=== PATIENT | male | born 1960 | race Asian ===

== ENCOUNTER 2018-09-30 18:41 | Inpatient (IN) | payer OTHER ==
[~2018-09-30] VITALS: Ht 167.6 cm; Wt 79.1 kg
[~2018-09-30 18:41] MED LIST: ATRUD HHN; BACO TOP; CLONAZEPAM1 MG PO; COL100 PO; GLU500 PO; HALCION0.25 MG PO; HIBICLENS118 ML TOP; LEVAQUIN750 MG PO; MOTRIN800 MG PO; OXYCONTIN20 MG PO; PRI20 PO; XOP1.25 HHN; ZES10 PO; ZOMIG5 MG PO
[2018-09-30 18:49] VITALS: Ht 167.6 cm; Wt 79.1 kg
[2018-09-30 19:10] LABS: PLATELET COUNT 285 x10^3mcL (130-400)
[2018-09-30 19:11] LABS: BASOPHIL % 0 % (0-2); RED CELL DISTRIBUTION WIDTH 14.7 % (11.5-14.5)
[2018-09-30 19:28] LABS: ALBUMIN 3.5 g/dL (3.4-5.0); ALKALINE PHOSPHATASE 136 U/L (46-116); ALT/SGPT 54 U/L (16-63); AST/SGOT 17 U/L (15-37); BILIRUBIN TOTAL 0.31 mg/dL (0.20-1.00); CALCIUM 8.7 mg/dL (8.5-10.1); CARBON DIOXIDE 26.7 mmol/L (21-32); CHLORIDE SERUM 92 mmol/L (98-107); CREATININE SERUM 1.3 mg/dL (0.7-1.3); GFR1 > 60 mL/min; POTASSIUM SERUM 4.4 mmol/L (3.5-5.1); SODIUM SERUM 125 mmol/L (136-145); TOTAL PROTEIN, SERUM 7.3 g/dL (6.4-8.2)
[2018-09-30 19:31] LABS: GLUCOSE SERUM 493 mg/dL (74-106)
[2018-09-30 20:05] LABS: microscopic required? NO
[2018-09-30 20:11] LABS: UA SPECIFIC GRAVITY <=1.005 (1.005-1.035); urine erythrocyte NEGATIVE (NEGATIVE)
[2018-09-30 20:48] LABS: CHOLESTEROL/HDL RATIO 3.9; MAGNESIUM 2.2 mg/dL (1.8-2.4); PHOSPHOROUS 3.1 mg/dL (2.5-4.9)
[2018-09-30] MEDS ORDERED: IBUPROFEN400 MG PO (20:59)
[2018-09-30] MEDS ORDERED: OXYC PO (20:59)
[2018-09-30] MEDS ORDERED: TOPROL XL25 MG PO (21:00)
[2018-09-30] MEDS ORDERED: LOSARTAN POTASS50 M1 PO (21:00)
[2018-09-30 21:01] LABS: T3 TOTAL 0.88 ng/mL
[2018-09-30 21:17] LABS: FREE T4 0.92 ng/dL (0.76-1.46); FREE THYROXINE INDEX 2.8 ug/dL (1.4-4.5); T4(THYROXINE) 7.5 ug/dL (4.7-13.3)
[2018-09-30 21:59] VITALS: BP 142/104
[2018-09-30] MEDS ORDERED: METOPROLOL TART50 MG PO (22:16)
[2018-09-30 23:49] VITALS: BP 142/104
[2018-10-01 05:11] LABS: PLATELET COUNT 268 x10^3mcL (130-400)
[2018-10-01 05:12] LABS: BASOPHIL % 0 % (0-2); RED CELL DISTRIBUTION WIDTH 15.1 % (11.5-14.5)
[2018-10-01 05:22] LABS: CARBON DIOXIDE 27.5 mmol/L (21-32); CHLORIDE SERUM 97 mmol/L (98-107); CREATININE SERUM 1.1 mg/dL (0.7-1.3); GFR1 > 60 mL/min; GLUCOSE SERUM 393 mg/dL (74-106); POTASSIUM SERUM 4.6 mmol/L (3.5-5.1); SODIUM SERUM 133 mmol/L (136-145)
[2018-10-01 05:42] VITALS: BP 141/97
[2018-10-01 08:42] VITALS: BP 142/97
[2018-10-01 12:16] VITALS: BP 117/90
[2018-10-01 17:06] VITALS: BP 116/77
[2018-10-01 21:17] VITALS: BP 134/97
[2018-10-02 04:17] VITALS: BP 125/67
[2018-10-02 06:57] LABS: CALCIUM 8.8 mg/dL (8.5-10.1); CARBON DIOXIDE 29.8 mmol/L (21-32); CHLORIDE SERUM 95 mmol/L (98-107); CREATININE SERUM 0.8 mg/dL (0.7-1.3); GFR1 > 60 mL/min; GLUCOSE SERUM 249 mg/dL (74-106); SODIUM SERUM 131 mmol/L (136-145)
[2018-10-02 07:03] LABS: BASOPHIL % 0.3 % (0-2); PLATELET COUNT 283 x10^3mcL (130-400); RED CELL DISTRIBUTION WIDTH 14.5 % (11.5-14.5)
[2018-10-02 08:04] VITALS: BP 127/77
[2018-10-02 12:19] VITALS: BP 121/85
[2018-10-02] MEDS ORDERED: LEVOFLOXACIN500 M1 PO (14:26)
[2018-10-02] MEDS ORDERED: LOSARTAN POTAS100 M1 PO (14:26)
[2018-10-02] MEDS ORDERED: LAC PO (14:26)
[2018-10-02] MEDS ORDERED: PREDNISONE20 MG PO (14:27)
[2018-10-02 14:32] VITALS: BP 121/85
== END 2018-10-02 15:20 | disposition home or self-care (01) | DRG 189 ==
LOC: ED 18:41 → DU 20:35
PROVIDERS: Emergency Medicine; ADMIT Family Medicine
DX: J96.00 Acute respiratory failure, unspecified whether with hypoxia or hypercapnia (principal); J44.1 Chronic obstructive pulmonary disease with (acute) exacerbation; E87.1 Hypo-osmolality and hyponatremia; E11.65 Type 2 diabetes mellitus with hyperglycemia; I10 Essential (primary) hypertension; E78.5 Hyperlipidemia, unspecified; D72.829 Elevated white blood cell count, unspecified; R74.0 Nonspecific elevation of levels of transaminase and lactic acid dehydrogenase [LDH]; K76.0 Fatty (change of) liver, not elsewhere classified; Z96.642 Presence of left artificial hip joint; Z68.29 Body mass index [BMI] 29.0-29.9, adult; Z87.891 Personal history of nicotine dependence; Z79.84 Long term (current) use of oral hypoglycemic drugs
CPT/HCPCS: 82962; 83880; 84439; 87804; J1815; J1956; J2920; J2930; J3475; J7030; J7613; J7620; J7644; Q0092

== ENCOUNTER 2019-06-23 19:44 | Inpatient (IN) | payer OTHER ==
[~2019-06-23] VITALS: Ht 167.6 cm; Wt 82.2 kg
[~2019-06-23 19:44] MED LIST changes: +IBUPROFEN400 MG PO; +LAC PO; +LEVOFLOXACIN500 M1 PO; +LOSARTAN POTAS100 M1 PO; +LOSARTAN POTASS50 M1 PO; +METOPROLOL TART50 MG PO; +OXYC PO; +PREDNISONE20 MG PO; +TOPROL XL25 MG PO
[2019-06-23 19:57] VITALS: Ht 167.6 cm; Wt 82.2 kg
--- NOTE | 2019-06-23 20:05 | NUR ---
PT BROUGHT TO ED FROM HOME BY [facility] WITH C/O SOB. PT STATES THAT HE HAS BEEN OUT OF HIS INHALER FOR X2 WKS BECAUSE HIS INSURANCE WILL NOT REFILL IT BEFORE HE SEES A DR. PT STATES THAT HE HAS BEEN FEELING SOB SINCE THEN BUT IT HAS BEEN WORSE TODAY. PER MEDICS PT WAS SPEAKING IN 2-3 WORD SENTANCE WITH DIMINISHED LUNG SOUNDS ON SCENE O2 SAT 97% ON RA. PT WAS GIVEN ALBUTEROL BREATHING TREATMENT AND PT NOW SPEAKING IN FULL SENTANCES AT THIS TIME, LUNG SOUNDS DIMINISHED BILATERALLY. PT REMAINS ON O2 SAT 97% AT THIS TIME. NO RETRACTIONS NOTED BUT MILD WORK OF BREATHING NOTED. . PT ON FULL CM DR KEENE AT BEDSIDE AT THIS TIME. PT AOX4, RESP EVEN AND UNLABORED, NO ACUTE DISTRESS NOTED.
--- NOTE | 2019-06-23 22:00 | NUR ---
AMBULATED PT TO OBTAIN O2 SAT, SAT DROPPED TO 86% ON RA WHILE AMBULATING. PT RETURNED TO BED WITHOUT INCIDENT, PLACED ON 3L O2 VIA NASAL CANNULA AND O2 SAT IMPROVED TO 93% AT THIS TIME. DR KEENE AWARE.
[2019-06-23 22:54] LABS: BASOPHIL % 0.3 % (0-2); PLATELET COUNT 303 x10^3mcL (130-400); RED CELL DISTRIBUTION WIDTH 14.5 % (11.5-14.5)
[2019-06-23 23:00] LABS: CALCIUM 8.8 mg/dL (8.5-10.1); CARBON DIOXIDE 27.1 mmol/L (21-32); CHLORIDE SERUM 99 mmol/L (98-107); CREATININE SERUM 0.9 mg/dL (0.7-1.3); GFR1 > 60 mL/min; GLUCOSE SERUM 225 mg/dL (74-106); POTASSIUM SERUM 3.9 mmol/L (3.5-5.1); SODIUM SERUM 135 mmol/L (136-145)
[2019-06-23 23:04] LABS: ALBUMIN 3.5 g/dL (3.4-5.0); ALKALINE PHOSPHATASE 114 U/L (46-116); ALT/SGPT 59 U/L (16-63); AST/SGOT 24 U/L (15-37); BILIRUBIN TOTAL 0.3 mg/dL (0.20-1.00); TOTAL PROTEIN, SERUM 7.4 g/dL (6.4-8.2)
[2019-06-23] MEDS ORDERED: OMEPRAZOLE40 M1 PO (23:17)
[2019-06-23] MEDS ORDERED: METOPROLOL TART50 MG PO (23:17)
[2019-06-23] MEDS ORDERED: NOR5 PO (23:17)
[2019-06-23] MEDS ORDERED: RULOX PO (23:18)
[2019-06-23] MEDS ORDERED: DALIRESP500 MC1 PO (23:18)
[2019-06-23] MEDS ORDERED: SPIRIVA18 MC1 INH (23:18)
[2019-06-23] MEDS ORDERED: LACTULOSE10 GM/152 PO (23:19)
[2019-06-23] MEDS ORDERED: LIDODERM51 TOP (23:19)
--- NOTE | 2019-06-23 23:23 | NUR ---
PT RESTING IN A POSITION OF COMFORT, AOX4, RESP EVEN AND UNLABORED, NO ACUTE DISTRESS NOTED.
--- NOTE | 2019-06-23 23:33 | NUR ---
PT REPORT CALLED TO NATALIE BROWN TO ASSUME PT CARE.
[2019-06-23 23:50] LABS: CHOLESTEROL/HDL RATIO 5.1
--- NOTE | 2019-06-23 23:57 | NUR ---
PT TRANSFERRED TO TELE BED [address] ON MONITOR WITH MYSELF AND EMT JOHANNY AT BEDSIDE. PT A&OX4,NO ACUTE DISTRESS NOTED,RESP EVEN AND UNALBORED, SPEAKING IN FULL CLEAR SENTENCES. RN NATALIE AT PT BEDSIDE TO ASSUME CARE OF PT.
--- NOTE | 2019-06-24 00:30 | NUR ---
PT WAS RECEIVED BY PRIMARY NURSE DIONNE FROM ED. PT SEEN SITTING ON THE EDGE OF THE BED, AAOX4. DENIES HEADACHE/DIZZINESS. ABLE TO FOLLOW COMMANDS. NO SOB NOTED, WHEEZES NOTED ON AUSCULTATION, O2 SAT=98%, ON 2LPM/NC. W/ NON-PRODUCTIVE COUGH. SINUS TACHYCARDIA ON THE MONITOR, HR AT 135. DENIES ABDOMINAL DISCOMFORT. BOWEL SOUNDS ACTIVE. ABDOMEN IS SOFT. VOIDS. IV SITE PATENT AND INTACT ON THE RAC. SIDE RAILS UPX2. CALL LIGHT ON REACH. PRIMARY NURSE DIONNE AT BEDSIDE FOR CONTINUITY OF CARE
--- NOTE | 2019-06-24 00:30 | NUR ---
PT RESTING IN BED AT THIS TIME. ON 3L NC, DENIES SOB. NO SIGNS OF ACUTE DISTRESS AT THIS TIME. BED AT LOWEST POSITION. CALL LIGHT WITHIN REACH. WILL CONTINUE TO MONITOR.
[2019-06-24 00:37] VITALS: BP 137/86
--- NOTE | 2019-06-24 03:13 | NUR ---
PHARMACY DC'D 0200 TAMIFLU AND RESCHEDULED TO 0900 DUE TO NOT BEING ABLE TO ACCESS IT.
[2019-06-24 06:15] VITALS: BP 135/72
--- NOTE | 2019-06-24 06:38 | NUR ---
PT RESTING IN BED AT THIS TIME. DENIES PAIN OR DISCOMFORT. BREATHING E/U, AUDIBLE WHEEZE HEARD AT THIS TIME. NO SIGNS OF ACUTE DISTRESS NOTED. ALL NEEDS AND CONCERNS ADDRESSED THIS SHIFT. BED AT LOWEST POSITION. CALL LIGHT WITHIN REACH. WILL ENDORSE TO DAY NURSE.
[2019-06-24 06:46] LABS: CARBON DIOXIDE 23.3 mmol/L (21-32); CHLORIDE SERUM 97 mmol/L (98-107); CREATININE SERUM 1.1 mg/dL (0.7-1.3); GFR1 > 60 mL/min; GLUCOSE SERUM 353 mg/dL (74-106); PHOSPHOROUS 2.2 mg/dL (2.5-4.9); POTASSIUM SERUM 4.4 mmol/L (3.5-5.1); SODIUM SERUM 133 mmol/L (136-145)
[2019-06-24 06:53] LABS: PLATELET COUNT 269 x10^3mcL (130-400)
--- NOTE | 2019-06-24 07:35 | NUR ---
PT IS AAOX4. BLIND IN L EYE. TELE [address] READING SINUS TACH. IV CATH TO RAC 18 GAUGE, S/L. COVERED WITH CDI OCCLUSIVE DRESSING. NO S/S OF INFECTION OR INFILTRATION NOTED. RESP EVEN AND UNLABORED. LUNG SOUND WITH BILATERAL WHEEZE NOTED. PT ON O2 N/C AT 3LPM. PT DENIES PAIN AND DISCOMFORT AT THIS TIME. CALL LIGHT WITHIN REACH.
[2019-06-24 08:16] VITALS: BP 147/82
[2019-06-24 08:19] LABS: BASOPHIL % 0 % (0-2); RED CELL DISTRIBUTION WIDTH 14.7 % (11.5-14.5)
--- NOTE | 2019-06-24 10:02 | NUR ---
PT REFUSED TO TAKE SCHEDULED MED METOPROLOL, PT STATES THE MEDICATION CAUSES HIM SOB AND STATED THE HE USUALLY TAKES LOSARTAN. PT HAS PAIN 01/04 BUT REFUSES TO TAKE ORDERED NORCO STATING THAT HE TAKES OXYCONTIN AND THAT OTHER PAIN MEDICATIONS MAKE HIM SICK AND GIVEN HIM NIGHTMARES. DR. BALDERRAMA WILL BE MADE AWARE. ALL OTHER SCHEDULE MEDS ALONG WITH FIRST DOSE OF TAMIFLU GIVEN AND TOLERATED WELL. PT HAS SOB AND WHEEZING. N/C AT [address]. PT HAS ALREADY RECEIVED BREATHING TX. PT TAUGHT TO SIT UP IN BED AT HIGH FOWLERS TO IMPROVE BREATHING. PT DEMONSTRATED UNDERSTANDING. CALL LIGHT WITHIN REACH. WILL CONTINUE TO MONITOR.
[2019-06-24 11:32] VITALS: BP 155/83
[2019-06-24 16:57] VITALS: BP 108/75
--- NOTE | 2019-06-24 17:19 | NUR ---
OXYCONTIN PO GIVEN FOR BACK PAIN 03/07. EXTRA FLUIDS GIVEN. RESP EVEN AND UNLABORED. CALL LIGHT WITHIN REACH.
--- NOTE | 2019-06-24 19:30 | NUR ---
RECEIVED PT FROM DAY SHIFT RN. PT AAOX4 DENIES HIGHTOWER/DIZZINESS. WHEEZING LUNG SOUNDS. PT ON NC 3L/MIN NO SOB NOTED. RT PROTOCOL. IV PATENT, SL. PT ON TELE 23 HR 139. PT DENIES CHEST PAIN/PRESSURE. AMBULATORY. PT CALM AND COOPERATIVE. NO ACUTE DISTRESS NOTED. CALL BUTTON WITHIN REACH. SAFETY PRECAUTIONS. DROPLET PRECAUTIONS IN PLACE. WILL CONTINUE TO MONITOR.
--- NOTE | 2019-06-24 19:55 | NUR ---
PT IS AAOX4. RESP EVEN AND UNLABORED. DENIES PAIN AT THIS TIME. IV CATH TO RAC WNL. TELE [address] READING NSR. CALL LIGHT WITHIN REACH. DROPLET PRECAUTIONS OBSERVED THROUGH OUT DAY. ENDORESED ALL CARE TO KEVIN SLATER.
[2019-06-24 20:16] VITALS: BP 131/73
--- NOTE | 2019-06-25 01:33 | NUR ---
PT RESTING. NO ACUTE DISTRESS NOTED. CALL BUTTON WITHIN REACH. SAFETY PRECAUTIONS IN PLACE. WILL CONTINUE TO MONITOR.
--- NOTE | 2019-06-25 03:37 | NUR ---
PER PT HE TAKES IBUPROFEN AND OXYCODONE TOGETHER AT HOME. DR DORSEY MADE AWARE AND OKAY TO GIVE THEM TOGETHER AT THIS TIME. WILL MONITOR.
--- NOTE | 2019-06-25 04:53 | NUR ---
PT RESTING AT THIS TIME. BREATHING EVEN AND UNLABORED. PT CONTINUE TO HAVE WHEEZING, NO SOB NOTED. PT ON NC 3L/MIN. RT PROTOCOL. PT AMBULATORY WITH BRP. IV PATENT, SL. PT DENIES ANY PAIN. MEDICATED PER EMAR. CALL BUTTON WITHIN REACH. SAFETY PRECAUTIONS IN PLACE. WILL CONTINUE TO MONITOR AND ENDORSE CARE TO DAY SHIFT RN.
[2019-06-25 05:42] VITALS: BP 139/94
[2019-06-25 06:24] LABS: CALCIUM 9.2 mg/dL (8.5-10.1); CARBON DIOXIDE 28.2 mmol/L (21-32); CHLORIDE SERUM 100 mmol/L (98-107); CREATININE SERUM 0.9 mg/dL (0.7-1.3); GFR1 > 60 mL/min; GLUCOSE SERUM 229 mg/dL (74-106); PHOSPHOROUS 3.2 mg/dL (2.5-4.9); POTASSIUM SERUM 4.5 mmol/L (3.5-5.1); SODIUM SERUM 134 mmol/L (136-145)
--- NOTE | 2019-06-25 06:42 | NUR ---
PT IV RAC ACCIDENTLY PULLED OUT, IV CATH INTACT. NEW IV ATTEMPTED TO RE-INSERT, PER PT NEEDS A BREAK AT THIS TIME AND WILL LIKE IV INSERTION AT A LATER TIME. WILL ENDORSE TO DAY SHIFT RN.
[2019-06-25 06:56] LABS: PLATELET COUNT 309 x10^3mcL (130-400)
--- NOTE | 2019-06-25 07:32 | NUR ---
PT AWAKE. DENIES ANY PAIN. NO SIGNS OF ACUTE DISTRESS. CALL BUTTON WITHIN REACH. SAFETY PRECAUTIONS IN PLACE. DROPLET PRECAUTIONS. ENDORSED CARE TO DAY SHIFT RN, ALL QUESTIONS ADDRESSED.
[2019-06-25 07:45] VITALS: BP 135/93
--- NOTE | 2019-06-25 07:45 | NUR ---
PT ASKING FOR OXYCODONE WHICH IS NOT AVAILABLE TO HIM AT THIS TIME. OFFERED NORCO WHICH WAS REFUSED.
[2019-06-25 07:49] LABS: BASOPHIL % 0 % (0-2); RED CELL DISTRIBUTION WIDTH 14.9 % (11.5-14.5)
[2019-06-25 10:10] LABS: microscopic required? NO
[2019-06-25 10:56] LABS: UA SPECIFIC GRAVITY <=1.005 (1.005-1.035); urine erythrocyte NEGATIVE (NEGATIVE)
--- NOTE | 2019-06-25 12:11 | NUR ---
PT WANTS TO LEAVE AMA. SAYS HE HAS LUNCH NICHOL WITH HIS . DR. SPANGLER NOTIFIED.
--- NOTE | 2019-06-25 12:35 | NUR ---
PT LEAVING AMA. HE WANTS TO GO HOME AND GET BACK ON IS OWN MEDICATION REGIMEN, AND HAVE HIS OWN FOOD HE IS USED TOO. NO IV. TELE # 23 RETURNED TO TELE STATION. SEEN BY DR. SPANGLER BEFORE LEAVING. GIVEN PRESCRIPTIONS. RETURNED PTS OWN MEDS TO HIM FROM LOCKED BOX IN MED ROOM. SIGNED AMA.
== END 2019-06-25 12:50 | disposition left against medical advice (07) | DRG 189 ==
LOC: ED 19:44 → DU 23:11 → MU 23:53 → DU 23:59
PROVIDERS: Emergency Medicine; ADMIT General Practice
DX: J96.21 Acute and chronic respiratory failure with hypoxia (principal); J44.1 Chronic obstructive pulmonary disease with (acute) exacerbation; E87.1 Hypo-osmolality and hyponatremia; J11.1 Influenza due to unidentified influenza virus with other respiratory manifestations; E11.65 Type 2 diabetes mellitus with hyperglycemia; K21.9 Gastro-esophageal reflux disease without esophagitis; E78.5 Hyperlipidemia, unspecified; D64.9 Anemia, unspecified
CPT/HCPCS: 82962; 83880; 87804; G0378; J1100; J1956; J2920; J3475; J3490; J7040; J7613; J7626; J7644

== ENCOUNTER 2019-10-31 17:09 | Emergency (ER) | payer OTHER ==
[~2019-10-31] VITALS: Ht 162.6 cm; Wt 68.0 kg
[~2019-10-31 17:09] MED LIST changes: +DALIRESP500 MC1 PO; +LACTULOSE10 GM/152 PO; +LIDODERM51 TOP; +NOR5 PO; +OMEPRAZOLE40 M1 PO; +RULOX PO; +SPIRIVA18 MC1 INH
[2019-10-31 17:14] VITALS: BP 149/104; Ht 162.6 cm; Wt 68.0 kg
== END 2019-10-31 18:45 | disposition home or self-care (01) ==
LOC: ED 17:09
DX: R05 Cough (principal); M79.10 Myalgia, unspecified site; R43.9 Unspecified disturbances of smell and taste; G43.909 Migraine, unspecified, not intractable, without status migrainosus; J44.9 Chronic obstructive pulmonary disease, unspecified; G89.29 Other chronic pain; M54.9 Dorsalgia, unspecified; Z20.828 Contact with and (suspected) exposure to other viral communicable diseases; Z88.2 Allergy status to sulfonamides